=== PATIENT | male | born 1990 | race Caucasian/White ===

== ENCOUNTER 2017-04-16 17:37 | Emergency (ER) | payer OTHER ==
[~2017-04-16] VITALS: Ht 172.7 cm; Wt 95.0 kg
[2017-04-16 17:49] VITALS: BP 133/93; PULSE 99; RESP 17; TEMP 99; O2SAT 98
[2017-04-16] MEDS ORDERED: OMEP20TA PO (17:49)
[2017-04-16] MEDS ORDERED: CYCL1TAB29 PO (17:49)
[2017-04-16] MEDS ORDERED: TRAZ100T6 PO (17:49)
--- NOTE | 2017-04-16 17:49 | PD ---
Data Data Last Documented VS Vital Signs Date Time Temp Pulse Resp B/P Pulse Ox O2 Delivery O2 Flow Rate FiO2 04/16/17 17:49 99.0 99 17 133/93 98 Room Air Orders Lidocaine 1% Inj (50 Ml) (Xylocaine 1% I (04/16/17 18:00) Lidocaine 2% Jelly (Xylocaine 2% Jelly) (04/16/17 18:00) Finger ([id number]) (04/16/17 18:15) MDM Supervised Visit with DARON: Yes Narrative Course I, Dr. Kunz, have reviewed the advance practice practitioner's documentation and am in agreement, met with the patient face to face, made the diagnosis, and the medical decision making was done by me. *My assessment and Findings: This is a 27-year-old male who was gassing his 1990s, aero when he thought he saw some gas leaking out, for unknown reason the patient decided to stick his finger into the gas port of his gas tank, he got a trapped in there and had to call 911 to extricate him from his gas tank. 5 department had to cut the wheel well out of the car followed by cut the gas line to remove a piece of steel pipe with patient's finger trapped in it. The patient currently has approximately 8 inch long piece of high grade steel approximately 2 inches in diameter, at the base of which is the gasoline poured which has a flat valve on it which the patient's finger is caught in. The flap or valve does have a small hole in the patient's fingertip goes into the hole. With some effort Ms. Urena was able to remove the patient's finger, I examined his finger afterwards , and has already been digital blocked which was necessitated by the procedure, he does have full nontender range of motion and did have tenderness when first examined. Otherwise his finger appears atraumatic. Basic x-ray has been ordered and the patient will be stable for discharge shortly after that. Luis Antonio Kunz MD Apr 16, 2017 17:49
--- NOTE | 2017-04-16 17:51 | PD ---
HPI Chief Complaint: Injury Time Seen by Provider: 17:50 Travel History International Travel<30 days: No Contact w/Intl Traveler<30days: No Traveled to known affect area: No History of Present Illness HPI 27-year-old right hand dominant male presents the ED for evaluation of injury to the index finger of the left hand. The patient inserted his finger into the gas port of his car and was unable to dislodge the finger. [employer] paramedics cut a 6 inch piece of pipe from the car and the patient's finger is currently inside. He endorses good sensation. PFSH Past Medical History Cardiovascular Problems: Yes Social History Tobacco Use: No Allergies-Medications (Allergen,Severity, Reaction): Coded Allergies: No Known Allergies (Unverified , 04/16/17) Reported Meds & Prescriptions Reported Meds & Active Scripts Active Reported Trazodone (Trazodone HCl) 100 Mg Tablet 100 Mg PO HS Flexeril (Cyclobenzaprine HCl) 10 Mg Tab 10 Mg PO TID PRN Omeprazole 20 Mg Tab 20 Mg PO DAILY Review of Systems Except as stated in HPI: all other systems reviewed are Neg Physical Exam Narrative GENERAL: Well-nourished, well-developed white male in no acute distress. SKIN: Focused skin assessment warm/dry. HEAD: Normocephalic. EYES: No scleral icterus. No injection or drainage. NECK: Supple, trachea midline. No JVD or lymphadenopathy. CARDIOVASCULAR: Regular rate and rhythm without murmurs, gallops, or rubs. RESPIRATORY: Breath sounds equal bilaterally. No accessory muscle use. GASTROINTESTINAL: Abdomen soft, non-tender, nondistended. MUSCULOSKELETAL: No cyanosis, or edema. FOCUSED LEFT UPPER EXTREMITY EXAM: 2+ radial pulse. The distal third of the index finger of the left hand is inserted into a 2 cm pipe. Patient states that sensation is intact. He is able to freely move the remaining digits of the left hand. Neurovascularly intact distally. BACK: Nontender without obvious deformity. No CVA tenderness. Data Data Last Documented VS Vital Signs Date Time Temp Pulse Resp B/P Pulse Ox O2 Delivery O2 Flow Rate FiO2 04/16/17 17:49 99.0 99 17 133/93 98 Room Air Orders Lidocaine 1% Inj (50 Ml) (Xylocaine 1% I (04/16/17 18:00) Lidocaine 2% Jelly (Xylocaine 2% Jelly) (04/16/17 18:00) Finger ([id number]) (04/16/17 18:15) MDM Medical Decision Making Medical Screen Exam Complete: Yes Emergency Medical Condition: Yes Differential Diagnosis finger laceration versus fracture versus nail avulsion versus foreign body removal versus other Narrative Course 27-year-old right hand dominant male presents the ED for evaluation of injury to the index finger of the left hand. The patient inserted his finger into the gas port of his car and was unable to dislodge the finger. [employer] paramedics cut a 6 inch piece of pipe from the car and the patient's finger is currently inside. He endorses good sensation. I was reviewed. Physical exam reveals the index finger is trapped in a 6 inch piece of pipe. Foreign body removal was performed. Please see procedure note for details. Reexamination of the finger reveals a subcentimeter laceration to the lateral aspect of the finger, involving the lateral nail fold. X-ray reveals no acute bony injury. Laceration was repaired with Dermabond. She is instructed to keep the wound clean, dry, covered, follow up with the primary care provider. He is stable and discharged home. Procedures Procedure Narrative FOREIGN BODY REMOVAL LEFT INDEX FINGER: The patient arrives to the ED with a 8 inch section of gas pipe attached to his left index finger. A digital block was performed with 1% lidocaine. Adequate anesthesia was obtained. A mixture of 1% lidocaine jelly and water was used to lubricate the metal and the finger. A ring forceps was used to grasp a small valve of metal which was trapping the finger and move the metal superiorly. At the same time traction was exerted on the flexural aspect of the index finger which caused the finger to break free and the pipe to be removed. The patient is able to fully flex and extend the digit. There is a subcentimeter laceration on the radial side of the distal tip of the finger. No injury to the nail. I doubt fracture. Patient's finger was soaked in a 50-50 mix of Betadine and peroxide for approximately 30 minutes. Laceration repair: A subcentimeter laceration of the lateral aspect of the distal index finger which involves the lateral nail fold. This was repaired with Dermabond. Patient tolerated the procedure well. Diagnosis Primary Impression: Foreign body finger Referrals: Primary Care Physician Patient Instructions: Finger Laceration (ED), General Instructions Additional Instructions: Rest, hydrate. Take [id number] pain medications as directed on label, as needed. Avoid submerging the wound. The Dermabond will fall off on its own. Keep the wound clean, dry and covered. Follow up with the primary care provider. Return to the ED for any urgent or emergent medical condition. Disposition: 01 DISCHARGE HOME Condition: Stable Azul Urena Apr 16, 2017 17:50
[2017-04-16] MEDS ORDERED: LIDOCAINE 2% JELLY 30 ML TUBE TOPICAL ONE (18:00)
[2017-04-16] MEDS ORDERED: LIDOCAINE HCL 1% 50 ML VIAL INFIL ONE (18:00)
--- NOTE | 2017-04-16 19:03 | RADRPT ---
EXAM DATE/TIME: 04/16/2017 18:37 [facility] COMPARISON: No previous studies available for comparison. INDICATIONS : Patient stuck finger in gas pipe on vehicle today and got finger stuck. Lacerations to distal 2nd dig it, left hand. MEDICAL HISTORY : None. SURGICAL HISTORY : None. ENCOUNTER: Initial ACUITY: 1 day PAIN SCORE: 4/10 LOCATION: Left 2nd digit, left hand FINDINGS: Examination of the second digit of the left hand demonstrates no evidence of fracture or dislocation. No radiopaque foreign bodies are seen. There is soft tissue swelling over the proximal digit. CONCLUSION: Soft tissue swelling with no evidence of fracture or malalignment. Ronaldo Randle MD on April 16, 2017 at 19:00 Board Certified Radiologist. This report was verified electronically.
== END 2017-04-16 19:59 | disposition home or self-care (01) ==
LOC: NEPD 17:37
DX: S60.451A Superficial foreign body of left index finger, initial encounter (principal); S61.211A Laceration without foreign body of left index finger without damage to nail, initial encounter; X58.XXXA Exposure to other specified factors, initial encounter
CPT/HCPCS: 12001; 64450; 73140

== ENCOUNTER 2017-07-27 17:25 | Emergency (ER) | payer OTHER ==
[~2017-07-27] VITALS: Ht 172.7 cm; Wt 88.5 kg
[~2017-07-27 17:25] MED LIST: CYCL1TAB29 PO; OMEP20TA PO; TRAZ100T6 PO
[2017-07-27 17:44] VITALS: BP 134/63; PULSE 75; RESP 16; TEMP 99; O2SAT 98
[2017-07-27] MEDS ORDERED: KETOROLAC TROMETHAMINE 60 MG/2 ML (IM) VIAL IM ONE (18:30)
[2017-07-27] MEDS ORDERED: ORPHENADRINE INJ 60 MG/2 ML AMP IM ONE (18:30)
[2017-07-27] MEDS ORDERED: PRED20 PO (18:31)
--- NOTE | 2017-07-27 18:33 | PD ---
HPI . Sciatica Chief Complaint: Back/ Neck Pain or Injury Time Seen by Provider: 18:00 Travel History International Travel<30 days: No Contact w/Intl Traveler<30days: No Traveled to known affect area: No History of Present Illness HPI 27-year-old male patient presents emergency department for evaluation of lower back pain that started a couple days ago. Patient has a history of lower back pain and injury. [facility]. Patient has had sciatica and now the pain in his lower back is radiating down the posterior aspect of both of his legs. She denies any fever, chills, malaise, syncope, lightheadedness, chest pain, shortness breath, abdominal pain , nausea, vomiting or diarrhea. Patient denies any dysuria, hematuria, incontinence of urine or stool. Patient denies any paresthesias except for left great toe. He shouldn't states his left great toe is slightly numb. PFSH Past Medical History Cardiovascular Problems: Yes High Cholesterol: Yes Past Surgical History Joint Replacement: Yes (left shoulder) Social History Alcohol Use: No Tobacco Use: Yes (1-3 CIGARETTES PER DAY) Substance Use: No Allergies-Medications (Allergen,Severity, Reaction): Coded Allergies: No Known Allergies (Unverified , 07/27/17) Reported Meds & Prescriptions Reported Meds & Active Scripts Active No Active Prescriptions or Reported Medications Review of Systems Except as stated in HPI: all other systems reviewed are Neg Physical Exam Narrative GENERAL: Well-nourished, well-developed 27-year-old male patient in no acute distress. Nontoxic appearing SKIN: Focused skin assessment warm/dry. HEAD: Normocephalic. Atraumatic NEUROLOGICAL: Awake and alert. Cranial nerves II through XII intact. Motor and sensory grossly within normal limits. Five out of 5 muscle strength in all muscle groups. Normal speech. EYES: No scleral icterus. No injection or drainage. NECK: Supple, trachea midline. No JVD or lymphadenopathy. CARDIOVASCULAR: Regular rate and rhythm without murmurs, gallops, or rubs. RESPIRATORY: Breath sounds equal bilaterally. No accessory muscle use. GASTROINTESTINAL: Abdomen soft, non-tender, nondistended. MUSCULOSKELETAL: No cyanosis, or edema. BACK: No midline spinal tenderness. Nontender without obvious deformity. No CVA tenderness. Data Data Last Documented VS Vital Signs Date Time Temp Pulse Resp B/P (MAP) Pulse Ox O2 Delivery O2 Flow Rate FiO2 07/27/17 17:44 99.0 75 16 134/63 (86) 98 Orders Orders Ketorolac Inj (Toradol Inj) (07/27/17 18:30) Orphenadrine Inj (Norflex Inj) (07/27/17 18:30) MDM Medical Decision Making Medical Screen Exam Complete: Yes Emergency Medical Condition: Yes Differential Diagnosis Different diagnosis including but not limited to sciatica, paresthesias, lower back pain Narrative Course 27-year-old male patient presents emergency department for evaluation of lower back pain that radiates down the posterior aspect of both of his legs. [facility] of his lower back. Patient denies any fever, chills, malaise, shortness breath, incontinence of urine or stool. Patient will be given an IM injection of Toradol and I am injection of Norflex and discharged home with instructions to [facility] the [facility] and a prescription for prednisone. Diagnosis Primary Impression: Lower back pain Qualified Codes: M54.42 - Lumbago with sciatica, left side; M54.41 - Lumbago with sciatica, right side Patient Instructions: Acute Low Back Pain (ED), General Instructions Additional Instructions: Please return to emergency department if your symptoms return or worsen. Follow up with your primary care provider. Take medications as prescribed. Med/Other Pt SpecificInfo: Prescription(s) given Scripts Prednisone (Prednisone) 20 Mg Tab 40 MG PO DAILY for 3 Days, #6 TAB 0 Refills Take 40 mg (2 tablets) daily for 5 days Prov: Janice Will 07/27/17 Disposition: 01 DISCHARGE HOME Condition: Stable Janice Will Jul 27, 2017 18:33
== END 2017-07-27 18:43 | disposition home or self-care (01) ==
LOC: PHEFT 17:25
DX: M54.42 Lumbago with sciatica, left side (principal); M54.41 Lumbago with sciatica, right side; E78.00 Pure hypercholesterolemia, unspecified; Z72.0 Tobacco use; Z86.79 Personal history of other diseases of the circulatory system
CPT/HCPCS: 96372; 99284; J1885; J2360

== ENCOUNTER 2017-09-23 15:20 | Emergency (ER) | payer OTHER ==
[~2017-09-23 15:20] MED LIST changes: -CYCL1TAB29 PO; -OMEP20TA PO; +PRED20 PO; -TRAZ100T6 PO
[2017-09-23 15:22] VITALS: BP 133/80; PULSE 68; RESP 14; TEMP 98.6; O2SAT 98
--- NOTE | 2017-09-23 15:56 | PD ---
HPI Chief Complaint: Laceration/Skin Injury Time Seen by Provider: 15:38 Travel History International Travel<30 days: No Contact w/Intl Traveler<30days: No Traveled to known affect area: No History of Present Illness HPI 27-year-old male presents to the emergency room for evaluation of laceration to his left eye that occurred just prior to arrival. 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 He denies loss of consciousness. Denies changes in visual acuity or difficulty seeing. Last tetanus was one year ago. PFSH Past Medical History Cardiovascular Problems: Yes High Cholesterol: Yes Tetanus Vaccination: < 5 Years Past Surgical History Joint Replacement: Yes (left shoulder) Social History Alcohol Use: No Tobacco Use: Yes (1-3 CIGARETTES PER DAY) Substance Use: No Allergies-Medications (Allergen,Severity, Reaction): Coded Allergies: No Known Allergies (Unverified Adverse Reaction, Unknown, 09/23/17) Reported Meds & Prescriptions Reported Meds & Active Scripts Active Review of Systems Except as stated in HPI: all other systems reviewed are Neg Physical Exam Narrative GENERAL: Well-nourished, well-developed male in no acute distress. Afebrile. Ambulatory. SKIN: Focused skin assessment warm/dry. There is a 0.5 cm superficial laceration just lateral to the left eye with surrounding, mild ecchymosis. HEAD: Normocephalic. EYES: No scleral icterus. No injection or drainage. NECK: Supple, trachea midline. No JVD or lymphadenopathy. CARDIOVASCULAR: Regular rate and rhythm without murmurs, gallops, or rubs. RESPIRATORY: Breath sounds equal bilaterally. No accessory muscle use. PSYCHIATRIC: No delusional thought processes. No hallucinations. Data Data Last Documented VS Vital Signs Date Time Temp Pulse Resp B/P (MAP) Pulse Ox O2 Delivery O2 Flow Rate FiO2 09/23/17 15:22 98.6 68 14 133/80 (97) 98 Room Air MDM Medical Decision Making Medical Screen Exam Complete: Yes Emergency Medical Condition: Yes Medical Record Reviewed: Yes Differential Diagnosis Laceration, abrasion, contusion Narrative Course 27-year-old male presents to the emergency room for evaluation of superficial laceration just lateral to his left eye. Occurred just prior to arrival when he struck his head against a metal piece. Tetanus is up-to-date. No changes in visual acuity or loss of consciousness. Physical exam reveals a 0.5 cm superficial laceration just lateral to the left eye. Patient was informed that glue versus stitches put result the same outcome in regards to scarring. He stated he is not concerned about scarring. Laceration was approximated with Steri-Strips and glue. Patient to follow up with PCP or return for worsening symptoms. He understands and agrees to plan. Diagnosis Primary Impression: Superficial laceration Referrals: Primary Care Physician Additional Instructions: Keep wound clean and dry. Follow up with PCP as needed. Disposition: 01 DISCHARGE HOME Condition: Stable Chrissie Mo Sep 23, 2017 15:56
== END 2017-09-23 16:07 | disposition home or self-care (01) ==
LOC: NEPK 15:20
DX: S01.81XA Laceration without foreign body of other part of head, initial encounter (principal); E78.00 Pure hypercholesterolemia, unspecified; W22.09XA Striking against other stationary object, initial encounter; Z72.0 Tobacco use
CPT/HCPCS: 99282